=== PATIENT | male | born 1950 | race Caucasian/White ===

== ENCOUNTER 2016-12-16 11:30 | Inpatient (IN) | payer MEDICARE ==
--- NOTE | ~2016-12-16 | HP ---
History And Physical [place] [address] [facility] [place]. [address] NAME: CHUCK ANNE : 46 STATUS : ADM IN [facility]#: [id number] AGE: 66 ADM/REG DATE : 12/16/16 MR#: [id number] REPORT SERV DATE: 12/16/16 DICTATED BY: BRAYDEN POLANCO DATE: 12/16/16 REPORT STATUS : Draft TRANSCRIBED BY: MODL DATE: 12/16/16 DATE OF ADMISSION: 12/16/2016 CHIEF COMPLAINT: Neutropenic fever, BRIEF HISTORY OF PRESENT ILLNESS: The patient is a 66-year-old white male, treated by Dr. Serjio Asencio with carboplatin and etoposide, last chemo treatment about a week to 10 days ago, came into Dr. Asencio's office with a fever of 101.5 and was noted to have a neutropenia with a white count of 0.8, so he has been referred to the Hospitalist Service. This patient reports that he has been having difficult time because he is under radiation therapy by Dr. Florez, and he has had difficulty swallowing. He feels that food hurts him whenever he gets that he has not been able to eat really good. He has tried Carafate, and he has been on Magic Mouthwash and that seems to have not helped. He was on nystatin because he had oral thrush in the past. He also reported that recently he was started on morphine and that seemed to have helped some. He has not had any nausea, but last night, after eating he did vomit, again he attributed that to the use of morphine. He noted a fever today. He has had significant chest pain mainly related to his XRT. He has not had any diaphoresis. He has not had any night sweats. His appetite has been poor. He has noticed also some diarrhea, but no blood in the stool. He has not had any dysuria, frequency, urgency, or any other problems. He has not noticed any skin redness, swelling, or any sores in his genital areas, perianal areas, sacral areas, or any feet. He offers no other problems or complaints. REVIEW OF SYSTEMS: A 12-point review of systems otherwise is negative. PAST MEDICAL HISTORY: Significant for severe tobacco abuse; COPD that is oxygen dependent; noninvasive bladder cancer, status post cystoscopic resections two times about three years ago. He has hypertension. He has had a history of TIA treated at [facility]. PAST SURGICAL HISTORY: TURBT. ALLERGIES: CODEINE. HOME MEDICATIONS: Dexamethasone, sodium phosphate solution, Neulasta delivery kit, albuterol, Lipitor, Breo Ellipta, Symbicort, triamterene and hydrochlorothiazide, and Zantac. SOCIAL HISTORY: He quit smoking about three years ago. He was a smoker of two packs per day for 50+ years. Occasionally drinks a beer. No use of illicit substances. Lives at home. Fully functional in all ADLs. FAMILY HISTORY: Father with cancer of unknown type. Brother with cancer of the skin. One sister with throat cancer. Another sister with bone cancer. One sister has heart disease. Mother with diabetes. PHYSICAL EXAMINATION: History And Physical [address] [address] NAME: CHUCK ANNE : 46 STATUS : ADM IN [facility]#: [id number] AGE: 66 ADM/REG DATE : 12/16/16 MR#: [id number] REPORT SERV DATE: 12/16/16 DICTATED BY: BRAYDEN POLANCO DATE: 12/16/16 REPORT STATUS : Draft TRANSCRIBED BY: DIETER DATE: 12/16/16 GENERAL: White male, lying on the bed, appears to be in no obvious respiratory distress. He is awake and alert. He is oriented. VITAL SIGNS: Blood pressure is 88/56, temperature is 97.8, pulse of 107, and saturation of 98% on 2 L of nasal cannula. HEENT: Head is normocephalic, atraumatic. Pupils are equal, round, and reactive to light. Extraocular muscles are intact. Sclerae anicteric. Conjunctivae are normal. Somewhat sunken orbital spaces are noted. Oropharynx : Dry mucous membranes. Tongue protrusion midline. Uvula midline. NECK: Supple. No jugular venous distention. No carotid bruits or thyromegaly is appreciated. No lymphadenopathy in the neck is palpable. HEART: Regular rate rhythm. There is a 2/6 soft systolic murmur best heard in the second intercostal space along the left parasternal border. PMI is nondisplaced. LUNGS: Clear to auscultation both anteriorly and posteriorly without rales, rhonchi, wheezing, or consolidation. ABDOMEN: Scaphoid, soft, nontender, good bowel sounds. No rebound or guarding. No organomegaly. EXTREMITIES: Without cyanosis, clubbing, or edema. NEUROLOGICAL: Completely normal. LABORATORY DATA: The only labs available is from Dr. Asencio's office today with a CBC; his white count is 0.8, bands are 8%, neutrophils 56%, hemoglobin is 8.6, hematocrit of 25, platelet count is 73,000. His chemistry performed on 12/07/2016 shows a glucose of 119, creatinine of 0.9, sodium of 133, chloride of 94. alkaline phosphatase was 104, ALT was 30, albumin was 4.2, calcium was 8.9. IMPRESSION: 1. Neutropenic fever. 2. Radiation-induced esophagitis. 3. Limited stage T1 N2 M0 small cell lung cancer. 4. Hypertension. 5. O2 dependent chronic obstructive pulmonary disease. 6. Noninvasive bladder cancer in the previous with resection. 7. History of transient ischemic attack. PLAN: The patient will be admitted. Aggressive IV fluids will be given. IV antibiotics will be given. We will obtain marsh culture including urine and blood. We will obtain an echocardiogram as well. Home medications when available. Carafate will be given. Magic Mouthwash will be given. Viscous lidocaine will be used. Hematology/Oncology consultation will be obtained. The patient remains a full code. SV/DIETER Brayden Ploanco M.D. History And Physical [address] [address] NAME: CHUCK ANNE : 46 STATUS : ADM IN PAT#: [id number] AGE: 66 ADM/REG DATE : 12/16/16 MR#: [id number] REPORT SERV DATE: 12/16/16 DICTATED BY: BRAYDEN POLANCO DATE: 12/16/16 REPORT STATUS : Draft TRANSCRIBED BY: MODL DATE: 12/16/16 / [id number] CC: Fay De La Cruz DANA M Gregory R. Sutton, MD
--- NOTE | ~2016-12-16 | DS ---
Discharge Summary [place] [place]. [address] NAME: CHUCK ANNE : 46 STATUS : DIS IN PAT#: [id number] AGE: 66 ADM/REG DATE : 12/16/16 MR#: [id number] REPORT SERV DATE: 12/22/16 DICTATED BY: JORI NEWBERRY DATE: 12/21/16 REPORT STATUS : Draft TRANSCRIBED BY: MODL DATE: 12/21/16 ADMISSION DATE: 12/16/2016 DISCHARGE DATE: 12/21/2016 DISCHARGE DIAGNOSES: 1. Neutropenia fever, resolved. 2. Radiation-induced esophagitis. 3. Limited small-cell lung cancer. 4. Noninvasive bladder cancer. 5. Oxygen-dependent chronic obstructive pulmonary disease. 6. Pancytopenia, chemo induced. 7. Hypokalemia, resolved. 8. Hypomagnesium, resolved. IMAGIN. Chest x-ray, 12/16/2016. Impression: Bilateral pleural thickening, scarring in the lungs. Left upper lobe is worse than the right. This is unchanged from 11/09/2016. 2. Barium swallow, 12/18/2016. Impression: No esophageal perforation demonstrated. Echocardiogram, overall quality of study is limited. The patient is noted to be in tachycardic. Valvular structures were not well seen, normal left ventricular size with normal left ventricular systolic function, EF of 50%. Mild left ventricular diastolic dysfunction. Normal right ventricular size and systolic function. Mildly calcified aortic valve without aortic stenosis. LABORATORY DATA: WBC is 0.9, hemoglobin 7.7, hematocrit 22.1, and platelet count is 60, absolute neutrophil is 0.52. HOSPITAL STAY: Please refer to history and physical dictated by Dr. Brayden Polanco on 12/16/2016 for complete admission details. This patient is a 66-year-old male, who is currently being treated for limited small cell lung cancer under the care of Dr. Asencio. He last underwent chemotherapy 10 days prior to this admission. He did present with a fever of 101.5 and WBC of 0.8. The patient is currently undergoing radiation with Dr. Florez. He does state that he is having difficulty swallowing. 1. Neutropenic fever, resolved. The patient's WBC count is noted 0.8 upon admission. The patient was started on broad-spectrum antibiotics. Blood and urine cultures were obtained. The patient was monitored, and the patient remained afebrile. ANC count of 520. Blood cultures were negative x4 days. Antibiotics were discontinued. 2. Radiation-induced esophagitis. The patient does have complaints of difficulty swallowing. A barium swallow was ordered. The patient had no difficulty swallowing. Weight has remained stable. A nutrition consult was obtained. Per recommendation, the patient to continue soft diet. The patient does state that viscous lidocaine has given him relief, it was prescribed prior to each meals and p.r.n., prescription has been provided. 3. Limited small-cell lung cancer followed by Dr. Asencio and Dr. Florez. The patient will Discharge Summary [address] [place]. [address] NAME: CHUCK ANNE : 46 STATUS : DIS IN PAT#: [id number] AGE: 66 ADM/REG DATE : 12/16/16 MR#: [id number] REPORT SERV DATE: 12/22/16 DICTATED BY: JORI NEWBERRY DATE: 12/21/16 REPORT STATUS : Draft TRANSCRIBED BY: DIETER DATE: 12/21/16 continue to follow up as an outpatient. 4. Noninvasive bladder cancer. Again, followed by Oncology. 5. Oxygen-dependent chronic obstructive pulmonary disease. The patient has been monitored, has remained at baseline O2 needs during his hospital stay. 6. Pancytopenia, chemo induced, lab work has been monitored. The patient did receive 1 unit of platelets on 12/19/2016. 7. Hypokalemia and hypomagnesium, this was replaced per protocol. This patient is being discharged home in hemodynamically stable condition. We will follow up with his oncologist. Prescriptions for viscous lidocaine and morphine were provided. The patient will resume home health upon discharge. DISCHARGE MEDICATIONS: 1. Lipitor 40 mg 1 p.o. at bedtime. 2. Prilosec 20 mg 1 p.o. daily. 3. Carafate 1 g p.o. a.c. and at bedtime p.r.n. 4. Maxzide 50 mg 1 p.o. daily. 5. Morphine 20 mg/5 mL p.o. every 4 hours p.r.n. for pain. 6. Phenergan 25 mg 1 p.o. every 6 hours. 7. Zofran 8 mg 1 p.o. every eight hours p.r.n. for nausea. 8. Breo Ellipta 200/25 mcg inhaler 1 puff inhaled daily. 9. Magic mouthwash 5-10 mL p.o. 4 times daily. 10.Albuterol inhaler 1 neb inhaled daily. This discharge took greater than 30 minutes due to corroboration with the oncologist and showcase trimmer. KENDALL/DIETER Jori Newberry NP / [id number] CC: MD Janneth Cuevas
[2016-12-16 14:12] LABS: MEAN CORPUSCULAR VOLUME 91.4 fL (80-100); MEAN PLATELET VOLUME 8.2 fL (9.2-13.0); RBC DISTRIBUTION WIDTH 15.4 % (12.0-16.0); RED CELL COUNT 1.97 10/6/uL (4.7-6.1)
[2016-12-16 14:18] LABS: HEMOGLOBIN 6.3 g/dL (13.6-17.8); INTERNATIONAL NORMAL RATI 1.2 UNITS (-); PARTIAL THROMBO TIME 32.5 SEC (22.5-37.2); PLATELET COUNT 24 10/3/uL (150-400); PROTIME (NOT ORD) 15.1 SEC (12.0-14.5); WHITE BLOOD CELLS 0.2 10/3/uL (4.5-10.5)
[2016-12-16 14:22] LABS: MANUAL DIFF YES %
[2016-12-16 14:27] LABS: A/G RATIO 0.7 (0.7-1.9); ALBUMIN 2.6 G/DL (3.5-5.0); ALKALINE PHOSPHATASE 84 U/L (45-117); BUN (BLOOD UREA NITROGEN) 22 MG/DL (6-23); CALCIUM, SERUM 7.8 MG/DL (8.5-10.4); CHLORIDE, SERUM 93 MMOL/L (96-112); CO2 (CARBON DIOXIDE) 27 MMOL/L (24-34); CREATININE 0.75 MG/DL (0.70-1.30); GFR AFRICAN AMERICAN 109 ML/MIN (>=60); GFR NON AFRICAN AMERICAN 94 ML/MIN (>=60); GLOBULIN 3.6 G/DL (2.5-4.1); GLUCOSE, SERUM 104 MG/DL (60-99); PHOSPHORUS, SERUM 3.3 MG/DL (2.5-4.5); POTASSIUM, SERUM 3.6 MMOL/L (3.5-5.3); SGOT(AST) 11 U/L (5-40); SGPT(ALT) 15 U/L (5-65); SODIUM, SERUM 130 MMOL/L (135-148); TOTAL BILIRUBIN 0.7 MG/DL (0-1.2); TOTAL PROTEIN 6.2 G/DL (6.0-8.5)
[2016-12-16 14:33] LABS: BAND NEUTROPHILS 20 %; LYMPHOCYTES 70 %; LYMPHOCYTES ABSOLUTE (CALC) 0.14 10/3/uL (0.67-4.30); NEUTROPHILS ABSOLUTE (CALC) 0.06 10/3/uL (2.02-8.40); RBC MORPHOLOGY NORM (NORMAL); SEGMENTED NEUTROPHIL (0) 10 %; TOTAL NUCLEATED CELLS 10
[2016-12-16 15:06] LABS: PROCALCITONIN 0.65 ng/mL (<0.5)
[2016-12-16] MEDS ORDERED: MAXZIDE PO (15:21)
[2016-12-16] MEDS ORDERED: MORPHINE S20 MG/5 ML PO (15:22)
[2016-12-16] MEDS ORDERED: PRILO PO (15:22)
[2016-12-16] MEDS ORDERED: SUCR PO (15:22)
[2016-12-16] MEDS ORDERED: ZOFRAN8 PO (15:23)
[2016-12-16] MEDS ORDERED: PR25 PO (15:23)
[2016-12-16] MEDS ORDERED: BREO ELLIPTA 21 EACH INH (15:23)
[2016-12-16] MEDS ORDERED: MAGIC MOUTHWASH PO (15:24)
[2016-12-16] MEDS ORDERED: CHEMOTHERAPY IV (15:25)
[2016-12-16] MEDS ORDERED: FLUCON1 PO (15:25)
[2016-12-16] MEDS ORDERED: DUONEB INH ×2 (15:26)
[2016-12-16] MEDS ORDERED: LIPITOR40 PO (15:27)
[2016-12-17 08:13] LABS: MEAN CORPUS HGB CONC 35.8 g/dL (32.0-36.0); MEAN CORPUSCULAR HEMOGLOB 31.4 pg (26.0-34.0); MEAN PLATELET VOLUME 9.5 fL (9.2-13.0); RBC DISTRIBUTION WIDTH 15.2 % (12.0-16.0)
[2016-12-17 08:14] LABS: ALBUMIN 2.4 G/DL (3.5-5.0); BUN (BLOOD UREA NITROGEN) 14 MG/DL (6-23); CALCIUM, SERUM 8.2 MG/DL (8.5-10.4); CHLORIDE, SERUM 96 MMOL/L (96-112); CO2 (CARBON DIOXIDE) 27 MMOL/L (24-34); CREATININE 0.68 MG/DL (0.70-1.30); GFR AFRICAN AMERICAN 114 ML/MIN (>=60); GFR NON AFRICAN AMERICAN 98 ML/MIN (>=60); GLUCOSE, SERUM 102 MG/DL (60-99); PHOSPHORUS, SERUM 2.3 MG/DL (2.5-4.5); POTASSIUM, SERUM 3.3 MMOL/L (3.5-5.3); SODIUM, SERUM 132 MMOL/L (135-148)
[2016-12-17 08:16] LABS: HEMATOCRIT 24.6 % (40.0-51.0); HEMOGLOBIN 8.8 g/dL (13.6-17.8); MANUAL DIFF YES %; MEAN CORPUSCULAR VOLUME 87.9 fL (80-100); PLATELET COUNT 13 10/3/uL (150-400); WHITE BLOOD CELLS 0.2 10/3/uL (4.5-10.5)
[2016-12-17 09:57] LABS: LYMPHOCYTES 60 %; LYMPHOCYTES ABSOLUTE (CALC) 0.12 10/3/uL (0.67-4.30); MONOCYTES 20 %; MONOCYTES ABSOLUTE (CALC) 0.04 10/3/uL (0.21-1.20); NEUTROPHILS ABSOLUTE (CALC) 0.04 10/3/uL (2.02-8.40); SEGMENTED NEUTROPHIL (0) 20 %; TOTAL NUCLEATED CELLS 20
[2016-12-17 09:58] LABS: POLYCHROMASIA 1+ (2-5/OIF) (0-1/OIF); TEARDROP SHAPED RBCS OCC (0-2/OIF)
[2016-12-17 09:59] LABS: ASCORBIC ACID (UR NOT ORDER) NEG (NEG); BILIRUBIN, URINE NEGATIVE (NEG); KETONE, URINE NEGATIVE (NEG); LEUKOCYTE ESTERASE(NOT OR NEG (NEG); WBC (NOT ORDERED) (RFLEX) 2 (0-5)
[2016-12-18 06:20] LABS: HEMATOCRIT 23.6 % (40.0-51.0); HEMOGLOBIN 8.2 g/dL (13.6-17.8); MANUAL DIFF YES %; MEAN CORPUS HGB CONC 34.7 g/dL (32.0-36.0); MEAN CORPUSCULAR HEMOGLOB 30.5 pg (26.0-34.0); MEAN CORPUSCULAR VOLUME 87.7 fL (80-100); PLATELET COUNT 10 10/3/uL (150-400); RBC DISTRIBUTION WIDTH 15.5 % (12.0-16.0); RED CELL COUNT 2.69 10/6/uL (4.7-6.1); WHITE BLOOD CELLS 0.3 10/3/uL (4.5-10.5)
[2016-12-18 06:28] LABS: BUN (BLOOD UREA NITROGEN) 8 MG/DL (6-23); CALCIUM, SERUM 8.3 MG/DL (8.5-10.4); CHLORIDE, SERUM 96 MMOL/L (96-112); CO2 (CARBON DIOXIDE) 28 MMOL/L (24-34); CREATININE 0.61 MG/DL (0.70-1.30); GFR AFRICAN AMERICAN 119 ML/MIN (>=60); GFR NON AFRICAN AMERICAN 103 ML/MIN (>=60); GLUCOSE, SERUM 88 MG/DL (60-99); POTASSIUM, SERUM 3.3 MMOL/L (3.5-5.3); SODIUM, SERUM 134 MMOL/L (135-148)
[2016-12-18 06:44] LABS: BAND NEUTROPHILS 8 %; EOSINOPHILS 1 %; LYMPHOCYTES 61 %; LYMPHOCYTES ABSOLUTE (CALC) 0.18 10/3/uL (0.67-4.30); MONOCYTES 13 %; MONOCYTES ABSOLUTE (CALC) 0.04 10/3/uL (0.21-1.20); NEUTROPHILS ABSOLUTE (CALC) 0.08 10/3/uL (2.02-8.40); SEGMENTED NEUTROPHIL (0) 17 %; TOTAL NUCLEATED CELLS 100
[2016-12-18 06:45] LABS: HELMET CELLS OCC (0-2/OIF); POLYCHROMASIA 1+ (2-5/OIF) (0-1/OIF); TEARDROP SHAPED RBCS OCC (0-2/OIF)
[2016-12-18 06:46] LABS: MICROCYTES 1+ (5-10/OIF) (0-5/OIF)
[2016-12-19 05:04] LABS: HEMATOCRIT 21.9 % (40.0-51.0); HEMOGLOBIN 7.8 g/dL (13.6-17.8); MEAN CORPUS HGB CONC 35.6 g/dL (32.0-36.0); MEAN CORPUSCULAR HEMOGLOB 31.3 pg (26.0-34.0); MEAN PLATELET VOLUME 8.4 fL (9.2-13.0); RBC DISTRIBUTION WIDTH 15.4 % (12.0-16.0); RED CELL COUNT 2.49 10/6/uL (4.7-6.1)
[2016-12-19 05:05] LABS: MANUAL DIFF YES %; PLATELET COUNT 5 10/3/uL (150-400); WHITE BLOOD CELLS 0.4 10/3/uL (4.5-10.5)
[2016-12-19 05:19] LABS: ALBUMIN 2.2 G/DL (3.5-5.0); BUN (BLOOD UREA NITROGEN) 6 MG/DL (6-23); CALCIUM, SERUM 7.8 MG/DL (8.5-10.4); CHLORIDE, SERUM 95 MMOL/L (96-112); CO2 (CARBON DIOXIDE) 33 MMOL/L (24-34); CREATININE 0.54 MG/DL (0.70-1.30); GFR AFRICAN AMERICAN 125 ML/MIN (>=60); GFR NON AFRICAN AMERICAN 108 ML/MIN (>=60); GLUCOSE, SERUM 108 MG/DL (60-99); PHOSPHORUS, SERUM 2.9 MG/DL (2.5-4.5); POTASSIUM, SERUM 3.1 MMOL/L (3.5-5.3); SODIUM, SERUM 136 MMOL/L (135-148)
[2016-12-19 06:11] LABS: BAND NEUTROPHILS 33 %; EOSINOPHILS 3 %; EOSINOPHILS ABSOLUTE (CALC) 0.01 10/3/uL (0.0-0.53); LYMPHOCYTES 33 %; LYMPHOCYTES ABSOLUTE (CALC) 0.13 10/3/uL (0.67-4.30); MONOCYTES 7 %; MONOCYTES ABSOLUTE (CALC) 0.03 10/3/uL (0.21-1.20); NEUTROPHILS ABSOLUTE (CALC) 0.23 10/3/uL (2.02-8.40); SEGMENTED NEUTROPHIL (0) 24 %; TOTAL NUCLEATED CELLS 100
[2016-12-19 06:12] LABS: SPHEROCYTES OCC (0-2/OIF)
[2016-12-20 04:12] LABS: HEMATOCRIT 21.7 % (40.0-51.0); HEMOGLOBIN 7.4 g/dL (13.6-17.8); MEAN CORPUS HGB CONC 34.1 g/dL (32.0-36.0); MEAN CORPUSCULAR HEMOGLOB 30.6 pg (26.0-34.0); MEAN CORPUSCULAR VOLUME 89.7 fL (80-100); MEAN PLATELET VOLUME 8.8 fL (9.2-13.0); RED CELL COUNT 2.42 10/6/uL (4.7-6.1)
[2016-12-20 04:13] LABS: ALBUMIN 2.4 G/DL (3.5-5.0); BUN (BLOOD UREA NITROGEN) 5 MG/DL (6-23); CALCIUM, SERUM 8.4 MG/DL (8.5-10.4); CHLORIDE, SERUM 94 MMOL/L (96-112); CO2 (CARBON DIOXIDE) 33 MMOL/L (24-34); CREATININE 0.53 MG/DL (0.70-1.30); GFR AFRICAN AMERICAN 126 ML/MIN (>=60); GFR NON AFRICAN AMERICAN 109 ML/MIN (>=60); PHOSPHORUS, SERUM 2.7 MG/DL (2.5-4.5); SODIUM, SERUM 137 MMOL/L (135-148)
[2016-12-20 04:14] LABS: MANUAL DIFF YES %; PLATELET COUNT 71 10/3/uL (150-400); WHITE BLOOD CELLS 0.6 10/3/uL (4.5-10.5)
[2016-12-20 04:18] LABS: GLUCOSE, SERUM 86 MG/DL (60-99); POTASSIUM, SERUM 2.9 MMOL/L (3.5-5.3)
[2016-12-20 04:38] LABS: BAND NEUTROPHILS 32 %; EOSINOPHILS 2 %; EOSINOPHILS ABSOLUTE (CALC) 0.01 10/3/uL (0.0-0.53); HYPOCHROMIA 1+ (3-10/OIF) (0-2/OIF); LYMPHOCYTES 26 %; LYMPHOCYTES ABSOLUTE (CALC) 0.16 10/3/uL (0.67-4.30); MICROCYTES 1+ (5-10/OIF) (0-5/OIF); MONOCYTES 6 %; MONOCYTES ABSOLUTE (CALC) 0.04 10/3/uL (0.21-1.20); PLATELET ESTIMATE DEC (ADEQUATE); SEGMENTED NEUTROPHIL (0) 34 %; TOTAL NUCLEATED CELLS 50
[2016-12-21 04:22] LABS: HEMATOCRIT 22.1 % (40.0-51.0); HEMOGLOBIN 7.7 g/dL (13.6-17.8); MEAN CORPUS HGB CONC 34.8 g/dL (32.0-36.0); MEAN CORPUSCULAR HEMOGLOB 31.7 pg (26.0-34.0); MEAN CORPUSCULAR VOLUME 90.9 fL (80-100); PLATELET COUNT 60 10/3/uL (150-400); RBC DISTRIBUTION WIDTH 14.8 % (12.0-16.0); RED CELL COUNT 2.43 10/6/uL (4.7-6.1)
[2016-12-21 04:25] LABS: MANUAL DIFF YES %; WHITE BLOOD CELLS 0.9 10/3/uL (4.5-10.5)
[2016-12-21 04:34] LABS: BUN (BLOOD UREA NITROGEN) 6 MG/DL (6-23); CALCIUM, SERUM 8.2 MG/DL (8.5-10.4); CHLORIDE, SERUM 97 MMOL/L (96-112); CO2 (CARBON DIOXIDE) 34 MMOL/L (24-34); CREATININE 0.58 MG/DL (0.70-1.30); GFR AFRICAN AMERICAN 121 ML/MIN (>=60); GFR NON AFRICAN AMERICAN 105 ML/MIN (>=60); POTASSIUM, SERUM 3.4 MMOL/L (3.5-5.3); SODIUM, SERUM 138 MMOL/L (135-148)
[2016-12-21 04:38] LABS: GLUCOSE, SERUM 130 MG/DL (60-99)
[2016-12-21 05:02] LABS: BAND NEUTROPHILS 22 %; BASOPHILS 2 %; BASOPHILS ABSOLUTE (CALC) 0.02 10/3/uL (0.0-0.16); LYMPHOCYTES 30 %; LYMPHOCYTES ABSOLUTE (CALC) 0.27 10/3/uL (0.67-4.30); MONOCYTES 10 %; MONOCYTES ABSOLUTE (CALC) 0.09 10/3/uL (0.21-1.20); NEUTROPHILS ABSOLUTE (CALC) 0.52 10/3/uL (2.02-8.40); PLATELET ESTIMATE DEC (ADEQUATE); SEGMENTED NEUTROPHIL (0) 36 %; TOTAL NUCLEATED CELLS 100
[2016-12-21] MEDS ORDERED: MORPHINE S20 MG/5 ML (15:16)
== END 2016-12-21 18:30 | disposition home health service (06) | DRG 809 ==
LOC: 4EA 11:30
PROVIDERS: Internal Medicine; Nurse Practitioner Family
PROC: 30233R0 Transfusion of Autologous Platelets into Peripheral Vein, Percutaneous Approach (ICD-10-PCS; principal; 2016-12-16)
PROC: 30233N0 Transfusion of Autologous Red Blood Cells into Peripheral Vein, Percutaneous Approach (ICD-10-PCS; 2016-12-16)
DX: D70.9 Neutropenia, unspecified (principal); C34.90 Malignant neoplasm of unspecified part of unspecified bronchus or lung; N17.9 Acute kidney failure, unspecified; T66.XXXA Radiation sickness, unspecified, initial encounter; C67.9 Malignant neoplasm of bladder, unspecified; J44.9 Chronic obstructive pulmonary disease, unspecified; E83.42 Hypomagnesemia; K20.8 Other esophagitis; I10 Essential (primary) hypertension; E87.6 Hypokalemia; D61.810 Antineoplastic chemotherapy induced pancytopenia
CPT/HCPCS: 36415; 71020; 74220; 77336; 77386; 80048; 80053; 80069; 80202; 81001; 83605; 83735; 84100; 84145; 85025; 85610; 85730; 86850; 86900; 86901; 86920; 87040; 87449; 94640; A9270-GY; C8929; J0692; J1170; J2405; J3370; P9016; P9035; Q9957

== ENCOUNTER 2017-01-18 21:49 | Inpatient (IN) | payer MEDICARE ==
--- NOTE | ~2017-01-18 | CN ---
Consultation Report [facility] [address] [place]. [address] NAME: CHUCK GRIMES : 46 STATUS : ADM IN [facility]#: [id number] AGE: 66 ADM/REG DATE : 01/18/17 MR#: [id number] REPORT SERV DATE: 01/19/17 DICTATED BY: JESUS ABDULLAHI DATE: 01/19/17 REPORT STATUS : Draft TRANSCRIBED BY: MODL DATE: 01/19/17 CONSULTATION DATE OF CONSULTATION: REASON FOR REFERRAL: Lung cancer. HISTORY OF PRESENT ILLNESS: Mr. Grimes is a 66-year-old gentleman with a history of small cell lung cancer, recently status post [place] etoposide and concurrent radiation therapy. He is believed to be in remission at this time. He has had COPD diagnosed in 2009, which had been fairly well controlled but is worsened with this acute illness and hypertension which has been well controlled. He is admitted now with acute onset of worsening dyspnea with associated fever and chills. He had a CTA of the chest, I personally reviewed, which shows bilateral patchy infiltrates consistent with pneumonia. SOCIAL HISTORY: He is . He occasionally drinks alcohol. He quit tobacco use six years ago. FAMILY HISTORY: Negative for lung disease. REVIEW OF SYSTEMS: A complete review of systems was negative except for positive for fever, chills, dyspnea, and cough. PHYSICAL EXAMINATION: GENERAL: Reveals a thin gentleman in no acute distress. VITAL SIGNS: 98.9, 112/70, pulse 110, respirations 18. HEENT: Eyes: The conjunctivae and sclerae are clear. There is no icterus. Pupils are equal and reactive to light. There is a left lid lag. Ear, nose, mouth, and throat are normal to inspection. The lips and gums show no abnormalities. Oropharynx without thrush or stomatitis. NECK: Supple. There is no thyromegaly. The trachea is midline. Neck is symmetric. Skin without rash or nodules on inspection and palpation. CARDIOVASCULAR: Shows regular rate and rhythm without murmurs. There is no peripheral edema. RESPIRATIONS: Lungs are clear to auscultation without rhonchi or wheezing. There is a bilateral rhonchi with mild wheezing. The respiratory effort is minimally labored. GASTROINTESTINAL: The abdomen is soft. There is no hepatosplenomegaly or mass. PSYCHIATRIC: Shows normal insight and judgment. DATA REVIEW: The CTA is as I described. CBC shows a WBC of 15.3, hemoglobin 10.0, platelets 253,000. Lactate is 0.8. CMP showed a creatinine of 1.02 and normal liver tests. ASSESSMENT: Consultation Report [place] [address] [place]. [address] NAME: CHUCK GRIMES : 46 STATUS : ADM IN PAT#: [id number] AGE: 66 ADM/REG DATE : 01/18/17 MR#: [id number] REPORT SERV DATE: 01/19/17 DICTATED BY: JESUS ABDULLAHI DATE: 01/19/17 REPORT STATUS : Draft TRANSCRIBED BY: MODL DATE: 01/19/17 1. Lung cancer, status post chemoradiation. 2. Pneumonia with sepsis. Treatment with antibiotics. 3. Chronic obstructive pulmonary disease exacerbation. Therapy has started. 4. Anemia, multifactorial. We will follow. We will follow along with you. Thank you very much for this consultation. EMMANUEL/DIETER Jesus Abdullahi M.D. / [id number] CC: Fay Barbour Dana M Gregory R. Sutton, MD
--- NOTE | ~2017-01-18 | DS ---
Discharge Summary [facility] [address] [place]. [address] NAME: CHUCK ANNE : 46 STATUS : DIS IN PAT#: [id number] AGE: 66 ADM/REG DATE : 01/18/17 MR#: [id number] REPORT SERV DATE: 01/25/17 DICTATED BY: CHERELLE JAMES DATE: 01/22/17 REPORT STATUS : Draft TRANSCRIBED BY: MODL DATE: 01/22/17 ADMISSION DATE: 01/18/2017 DISCHARGE DATE: 01/22/2017 DISCHARGE DIAGNOSES: 1. Acute chronic hypoxic respiratory failure. The patient already has home O2. His saturation is 99% down to 95% with 3 L of oxygen. 2. COPD exacerbation. 3. Bilateral hilar pneumonia on the CT scan. The patient was treated with empiric antibiotics, spreading culture is growing with a normal keegan. 4. Pneumonia. CT of the finding was consistent with pneumonia. The patient's sputum was not growing any pathogen. However, clinically the patient had a pneumonia, we will continue to treat with a Bactrim for five more days. 5. Anemia multifactorial. The patient has finished the chemotherapy and also has nutritional status being low. The patient was transfused two units of total blood during this hospitalization. 6. Malnutrition, severe. 7. Lung cancer. Finished a radiation and chemo. 8. Recent diagnosis of radiation esophagitis, stable. HISTORY OF PRESENT ILLNESS: This is a 66-year-old male patient, who finished cancer treatment with radiation and chemo, recently came to the hospital with short of breath and fever and chills. Please see dictated H and P. HOSPITAL COURSE: He was admitted to hospital with pneumonia with hypoxia. He was on empiric antibiotics and had a volume resuscitation as well. He did have a treatment for COPD exacerbation along with other treatment. He did well, he improved. He also had a transfusion for multifactorial anemia and improved. All with this as a supportive treatment he did better. His steroid went down to the oral steroid and his sputum was growing initially some gram-positive cocci and however it returned into normal keegan. He was treated with the Levaquin and vancomycin for empiric treatment for sepsis with pneumonia and improved. Since we are not having any pathogen we are going to continue the Bactrim and azithromycin for five more days at home. He has been afebrile and stable. The other thing as he has been in sinus tachycardia through the whole time on this hospitalization regardless this is volume status. We are going to put him on the small dose of Coreg. He did well, he did tolerate all the treatment, repeated a chest x-ray was showing improvement of aeration and airspace disease. Therefore, the patient maximized inpatient benefit, will be discharged to home in stable condition. The patient already has an appointment with Dr. Asencio in two days. DISCHARGE MEDICATIONS: Bactrim DS 1 tablet every 12 hours for five days, azithromycin 500 mg a day for three days, Florastor 1 capsule twice a day, and continuing his nebulizer inhaler at home, continue Lipitor 40 mg once a day, Prilosec 20 mg once a day, prednisone will be prescribed for tapering from 30 down to 10, continue the Breo once a day, potassium 20 mg twice a day, lidocaine Viscous, MiraLAX, and Maalox liquid. Discharge Summary [address] [address] NAME: CHUCK ANNE : 48 STATUS : DIS IN PAT#: [id number] AGE: 66 ADM/REG DATE : 01/18/17 MR#: [id number] REPORT SERV DATE: 01/25/17 DICTATED BY: CHERELLE JAMES DATE: 01/22/17 REPORT STATUS : Draft TRANSCRIBED BY: DIETER DATE: 01/22/17 TIME SPENT: More than 30 minutes on discharge education and coordination. DISPOSITION: The patient is discharged home in stable condition. The patient has a followup later with Dr. Asencio in two days. EKL/MODL Cherelle James M.D. / [id number] CC: Fay Barbour DANA M Gregory R. Sutton, MD
--- NOTE | ~2017-01-18 | HP ---
History And Physical [address] [place]. [address] NAME: CHUCK ANNE : 46 STATUS : ADM IN [facility]#: [id number] AGE: 66 ADM/REG DATE : 01/18/17 MR#: [id number] REPORT SERV DATE: 01/19/17 DICTATED BY: ALEXEY AMBROSE DATE: 01/19/17 REPORT STATUS : Draft TRANSCRIBED BY: MODL DATE: 01/19/17 DATE OF ADMISSION: 01/18/2017 CHIEF COMPLAINT: A 66-year-old male presenting with increasing shortness of breath, chest pain, fevers, and chills. HISTORY OF PRESENTING ILLNESS: The patient's history was obtained through careful interview with the patient, coupled with review of [facility] and [facility] medical records. The patient states that just for about two days, he has been feeling "pretty rough." He recalls that he had this last chemotherapy and radiation about three weeks ago for small cell lung cancer and he at first seemed to tolerated well, but over these last few days, has had dyspnea on exertion and cough, productive of white phlegm. He describes subjective fevers and chills with rigors. Then today, he developed chest discomfort "all the way across" his chest, radiating up into his shoulders, pleuritic-like sharp discomfort, exacerbated by coughing, 8/10 severity. He has also had a headache for these last two days. He describes nausea, but no vomiting. Since the diagnosis of his lung cancer, he has lost about 15 pounds. Other complaints include hemorrhoids, constipation. REVIEW OF SYSTEMS: Otherwise, a 14-point review of systems was obtained and was negative. PAST MEDICAL HISTORY: 1. Small cell lung cancer, just diagnosed in 2017 with chemotherapy and radiation under the care of Dr. Asencio. 2. Radiation-induced esophagitis. 3. COPD, on chronic 2 L nasal cannula oxygen. 4. Transient ischemic attack. 5. Bladder cancer, seen previously by Dr. Vimal Mcdonald. 6. No cardiac disease. PAST SURGICAL HISTORY: TURBTs. ALLERGIES: CODEINE. SOCIAL HISTORY: Used to be a heavy smoker up to two packs per day since he was 12 years of age, but quit in 2013. No alcohol abuse. 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 He lives with his [id number]. He became a just in December 2015. He has one daughter, who lives locally. He lives in [facility] [address] [address] NAME: CHUCK ANNE : 46 STATUS : ADM IN [facility]#: [id number] AGE: 66 ADM/REG DATE : 01/18/17 MR#: [id number] REPORT SERV DATE: 01/19/17 DICTATED BY: ALEXEY AMBROSE DATE: 01/19/17 REPORT STATUS : Draft TRANSCRIBED BY: DIETER DATE: 01/19/17 [place], [place]. FAMILY HISTORY: Diabetes and heart disease. Sister with bone cancer. Father with cancer. Sister with throat cancer. CURRENT MEDICATIONS: Include DuoNeb nebulizers, Maalox, Lipitor 40 mg p.o. daily, Breo Ellipta inhaled daily, morphine every four hours as needed, Prilosec 20 mg p.o. daily, Zofran p.r.n., potassium 20 mEq p.o. b.i.d., Phenergan p.r.n., sucralfate 1 g before meals and at bedtime, triamterene/hydrochlorothiazide 75/50 p.o. daily, Lidocaine Viscous as needed. PHYSICAL EXAMINATION: VITAL SIGNS: Temperature 98.6, pulse 142, blood pressure 91/54, respiratory rate 26, and O2 saturation 88% on 2 L nasal cannula. GENERAL: A chronically ill-appearing male, but in no evidence of acute distress. HEENT: Pupils equal, round, and reactive to light. No conjunctival pallor. No scleral icterus. Nares are patent. Oropharynx is clear of obstruction. Dry mucous membranes. NECK: Trachea midline. No thyromegaly. LYMPH: No cervical lymphadenopathy. No supraclavicular lymphadenopathy. RESPIRATORY: The patient has extensive expiratory wheeze and prolonged expiratory phase. Harsh upper respiratory rhonchi. No rales though. No focal egophony can be appreciated. The patient has a labored respiratory effort. CARDIOVASCULAR: Tachycardic. Regular rhythm. No murmurs, rubs, or gallops. No extremity edema is appreciated. ABDOMEN: Soft, nontender, nondistended. Normal bowel sounds auscultated throughout. No hepatosplenomegaly. DERMATOLOGIC: Warm and dry extremities. No pallor. No cyanosis. PSYCHIATRIC: Normal affect. Good mood. Alert and oriented x3. LABORATORY DATA: White blood cell count 15.3 with 23% bands, hemoglobin 10, hematocrit 29, platelets 263. Sodium 132, potassium 3.4, chloride 93, bicarbonate 23, BUN 21, creatinine 1.0, glucose 93. Troponin negative. Lactic acid 0.8. Liver enzymes within normal limits. STUDIES: 1. Chest x-ray by my own evaluation shows chronic scar, stable compared to 12/16/2016 chest x-ray, significant COPD changes. 2. EKG by my own evaluation shows sinus tachycardia, right bundle-branch block, right atrial abnormality. ASSESSMENT AND PLAN: 1. Sepsis with white blood cell count of 15.3, 23% bands, tachycardia, tachypnea, and shock, although mean arterial pressure has been stable above 65 and there is normal lactic acid. Check blood cultures. Treat with IV antibiotics. 2. Hypoxic respiratory failure. Provide supportive care. 3. Small cell lung cancer by report, followed by Dr. Asencio with chemotherapy and radiation. 4. Chronic obstructive pulmonary disease exacerbation. Place on IV Solu-Medrol, DuoNeb History And Physical [address] [address] NAME: CHUCK ANNE : 46 STATUS : ADM IN [facility]#: [id number] AGE: 66 ADM/REG DATE : 01/18/17 MR#: [id number] REPORT SERV DATE: 01/19/17 DICTATED BY: ALEXEY AMBROSE DATE: 01/19/17 REPORT STATUS : Draft TRANSCRIBED BY: DIETER DATE: 01/19/17 nebulizers. KPL/MODL Alexey Ambrose M.D. / [id number] CC: Fay Barbour DANA M Gregory R. Sutton, MD
[2017-01-18 20:10] LABS: BASOPHILS 0.1 %; BASOPHILS ABSOLUTE 0.01 10/3/uL (0.0-0.16); EOSINOPHILS 0.1 %; EOSINOPHILS ABSOLUTE 0.01 10/3/uL (0.0-0.53); IMMATURE GRANULOCYTES 0.3 %; IMMATURE GRANULOCYTES ABSOLUTE 0.04 10/3/uL (0.0-0.11); LYMPHOCYTES 4.6 %; MEAN CORPUSCULAR HEMOGLOB 31.3 pg (26.0-34.0); MEAN CORPUSCULAR VOLUME 92.2 fL (80-100); MEAN PLATELET VOLUME 8.4 fL (9.2-13.0); MONOCYTES 4.9 %; MONOCYTES ABSOLUTE 0.75 10/3/uL (0.21-1.20); NEUTROPHILS ABSOLUTE 13.83 10/3/uL (2.02-8.40)
[2017-01-18 20:12] LABS: ER CBC TAT 0 Hrs 11 Mins; HEMATOCRIT 29.4 % (40.0-51.0); MANUAL DIFF NO %; PLATELET COUNT 263 10/3/uL (150-400); RED CELL COUNT 3.19 10/6/uL (4.7-6.1); WHITE BLOOD CELLS 15.3 10/3/uL (4.5-10.5)
[2017-01-18 20:25] LABS: ALKALINE PHOSPHATASE 85 U/L (45-117); CALCIUM, SERUM 9.1 MG/DL (8.5-10.4); CHLORIDE, SERUM 93 MMOL/L (96-112); CREATININE 1.02 MG/DL (0.70-1.30); GFR AFRICAN AMERICAN 87 ML/MIN (>=60); GFR NON AFRICAN AMERICAN 75 ML/MIN (>=60); POTASSIUM, SERUM 3.4 MMOL/L (3.5-5.3); SGOT(AST) 19 U/L (5-40); SGPT(ALT) 19 U/L (5-65); SODIUM, SERUM 132 MMOL/L (135-148); TOTAL BILIRUBIN 0.7 MG/DL (0-1.2)
[2017-01-18 20:26] LABS: BUN (BLOOD UREA NITROGEN) 21 MG/DL (6-23); CO2 (CARBON DIOXIDE) 23 MMOL/L (24-34); GLUCOSE, SERUM 93 MG/DL (60-99); TOTAL PROTEIN 7.9 G/DL (6.0-8.5)
[2017-01-18 20:27] LABS: A/G RATIO 0.7 (0.7-1.9); ALBUMIN 3.2 G/DL (3.5-5.0); GLOBULIN 4.7 G/DL (2.5-4.1)
[2017-01-18 20:36] LABS: BAND NEUTROPHILS 23 %; ER DIFF TAT 0 Hrs 35 Mins; LYMPHOCYTES 1 %; LYMPHOCYTES ABSOLUTE (CALC) 0.15 10/3/uL (0.67-4.30); MONOCYTES 5 %; MONOCYTES ABSOLUTE (CALC) 0.77 10/3/uL (0.21-1.20); NEUTROPHILS ABSOLUTE (CALC) 14.38 10/3/uL (2.02-8.40); PLATELET ESTIMATE ADQ (ADEQUATE); SEGMENTED NEUTROPHIL (0) 71 %; TOTAL NUCLEATED CELLS 100
[2017-01-18 20:37] LABS: ANISOCYTOSIS 1+ (5-10/OIF) (0-5/OIF); TOXIC GRANULATION SLT
[2017-01-18 21:13] LABS: LACTATE 0.8 MMOL/L (0.3-2.4)
[~2017-01-18 21:49] MED LIST: BREO ELLIPTA 21 EACH INH; CHEMOTHERAPY IV; DUONEB INH; FLUCON1 PO; LIPITOR40 PO; MAGIC MOUTHWASH PO; MAXZIDE PO; MORPHINE S20 MG/5 ML; MORPHINE S20 MG/5 ML PO; PR25 PO; PRILO PO; SUCR PO; ZOFRAN8 PO
[2017-01-18] MEDS ORDERED: KLOR-CON M2020 MEQ PO (22:13)
[2017-01-18] MEDS ORDERED: MAALOX PO (22:14)
[2017-01-18] MEDS ORDERED: LIDOCAINE VISCOUS PO (22:14)
[2017-01-18 22:53] LABS: WBC (NOT ORDERED) (RFLEX) 0 (0-5)
[2017-01-18 22:58] LABS: ASCORBIC ACID (UR NOT ORDER) NEG (NEG); BILIRUBIN, URINE NEGATIVE (NEG); KETONE, URINE 20 MG/DL (NEG); LEUKOCYTE ESTERASE(NOT OR NEG (NEG); NITRITE (URINE) NEG (NEG)
[2017-01-19 08:27] LABS: INTERNATIONAL NORMAL RATI 1.5 UNITS (-)
[2017-01-19 08:28] LABS: PARTIAL THROMBO TIME 43.8 SEC (22.5-37.2); PROTIME (NOT ORD) 17.9 SEC (12.0-14.5)
[2017-01-19 08:36] LABS: ALBUMIN 3.1 G/DL (3.5-5.0); CHLORIDE, SERUM 102 MMOL/L (96-112); CO2 (CARBON DIOXIDE) 20 MMOL/L (24-34); GFR AFRICAN AMERICAN 120 ML/MIN (>=60); GFR NON AFRICAN AMERICAN 103 ML/MIN (>=60); SGOT(AST) 9 U/L (5-40); SGPT(ALT) 9 U/L (5-65); SODIUM, SERUM 137 MMOL/L (135-148); TOTAL BILIRUBIN 0.7 MG/DL (0-1.2); ULTRASENSITIVE TSH 0.715 MCIU/ML (0.358-3.740)
[2017-01-19 08:37] LABS: A/G RATIO 1.1 (0.7-1.9); ALKALINE PHOSPHATASE 48 U/L (45-117); BUN (BLOOD UREA NITROGEN) 12 MG/DL (6-23); CALCIUM, SERUM 8.1 MG/DL (8.5-10.4); GLOBULIN 2.8 G/DL (2.5-4.1); GLUCOSE, SERUM 74 MG/DL (60-99); POTASSIUM, SERUM 2.8 MMOL/L (3.5-5.3); TOTAL PROTEIN 5.9 G/DL (6.0-8.5); TROPONIN I 0.05 NG/ML (<0.05)
[2017-01-19 09:03] LABS: HEMATOCRIT 20.9 % (40.0-51.0); HEMOGLOBIN 7.2 g/dL (13.6-17.8); MEAN CORPUS HGB CONC 34.4 g/dL (32.0-36.0); MEAN CORPUSCULAR HEMOGLOB 32.1 pg (26.0-34.0); MEAN CORPUSCULAR VOLUME 93.3 fL (80-100); PLATELET COUNT 178 10/3/uL (150-400); RBC DISTRIBUTION WIDTH 17.4 % (12.0-16.0); RED CELL COUNT 2.24 10/6/uL (4.7-6.1); WHITE BLOOD CELLS 10.7 10/3/uL (4.5-10.5)
[2017-01-19 09:04] LABS: MANUAL DIFF YES %
[2017-01-19 09:38] LABS: BAND NEUTROPHILS 28 %; LYMPHOCYTES 1 %; LYMPHOCYTES ABSOLUTE (CALC) 0.11 10/3/uL (0.67-4.30); MONOCYTES 4 %; MONOCYTES ABSOLUTE (CALC) 0.43 10/3/uL (0.21-1.20); NEUTROPHILS ABSOLUTE (CALC) 10.17 10/3/uL (2.02-8.40); PLATELET ESTIMATE ADQ (ADEQUATE); SEGMENTED NEUTROPHIL (0) 67 %; TOTAL NUCLEATED CELLS 100
[2017-01-19 09:39] LABS: ANISOCYTOSIS 1+ (5-10/OIF) (0-5/OIF); MACROCYTES 1+ (5-10/OIF) (0-5/OIF); TOXIC GRANULATION 1+
[2017-01-19 09:52] LABS: PROCALCITONIN 5.04 ng/mL (<0.5)
[2017-01-20 06:07] LABS: BASOPHILS 0 %; EOSINOPHILS 0.1 %; EOSINOPHILS ABSOLUTE 0.01 10/3/uL (0.0-0.53); HEMOGLOBIN 8.1 g/dL (13.6-17.8); IMMATURE GRANULOCYTES 0.2 %; IMMATURE GRANULOCYTES ABSOLUTE 0.02 10/3/uL (0.0-0.11); LYMPHOCYTES 1.9 %; LYMPHOCYTES ABSOLUTE 0.22 10/3/uL (0.67-4.30); MEAN CORPUSCULAR HEMOGLOB 30.5 pg (26.0-34.0); MEAN PLATELET VOLUME 8.3 fL (9.2-13.0); MONOCYTES 5.9 %; MONOCYTES ABSOLUTE 0.67 10/3/uL (0.21-1.20); NEUTROPHILS 91.9 %; NEUTROPHILS ABSOLUTE 10.47 10/3/uL (2.02-8.40); PLATELET COUNT 182 10/3/uL (150-400); RED CELL COUNT 2.66 10/6/uL (4.7-6.1); WHITE BLOOD CELLS 11.4 10/3/uL (4.5-10.5)
[2017-01-20 06:20] LABS: HEMATOCRIT 23.8 % (40.0-51.0); MANUAL DIFF NO %; MEAN CORPUSCULAR VOLUME 89.5 fL (80-100); RBC DISTRIBUTION WIDTH 20.9 % (12.0-16.0)
[2017-01-20 06:28] LABS: BUN (BLOOD UREA NITROGEN) 10 MG/DL (6-23); CALCIUM, SERUM 8.6 MG/DL (8.5-10.4); CHLORIDE, SERUM 106 MMOL/L (96-112); CO2 (CARBON DIOXIDE) 23 MMOL/L (24-34); CREATININE 0.67 MG/DL (0.70-1.30); GFR AFRICAN AMERICAN 114 ML/MIN (>=60); GFR NON AFRICAN AMERICAN 99 ML/MIN (>=60); GLUCOSE, SERUM 124 MG/DL (60-99); POTASSIUM, SERUM 3.3 MMOL/L (3.5-5.3); SODIUM, SERUM 139 MMOL/L (135-148)
[2017-01-20 12:14] LABS: POTASSIUM, SERUM 3.4 MMOL/L (3.5-5.3)
[2017-01-21 07:41] LABS: BASOPHILS 0 %; EOSINOPHILS 0 %; IMMATURE GRANULOCYTES 0.5 %; IMMATURE GRANULOCYTES ABSOLUTE 0.05 10/3/uL (0.0-0.11); LYMPHOCYTES 2.7 %; LYMPHOCYTES ABSOLUTE 0.29 10/3/uL (0.67-4.30); MEAN CORPUS HGB CONC 33.8 g/dL (32.0-36.0); MEAN CORPUSCULAR HEMOGLOB 28.2 pg (26.0-34.0); MEAN PLATELET VOLUME 8.5 fL (9.2-13.0); MONOCYTES 3.8 %; PLATELET COUNT 192 10/3/uL (150-400); RBC DISTRIBUTION WIDTH 24.8 % (12.0-16.0); WHITE BLOOD CELLS 10.6 10/3/uL (4.5-10.5)
[2017-01-21 07:43] LABS: HEMATOCRIT 29.9 % (40.0-51.0); HEMOGLOBIN 10.1 g/dL (13.6-17.8); MANUAL DIFF NO %; MEAN CORPUSCULAR VOLUME 83.5 fL (80-100); RED CELL COUNT 3.58 10/6/uL (4.7-6.1)
[2017-01-21 07:56] LABS: ALBUMIN 3.2 G/DL (3.5-5.0); CALCIUM, SERUM 9.4 MG/DL (8.5-10.4); CHLORIDE, SERUM 100 MMOL/L (96-112); CO2 (CARBON DIOXIDE) 26 MMOL/L (24-34); CREATININE 0.71 MG/DL (0.70-1.30); GFR AFRICAN AMERICAN 112 ML/MIN (>=60); GFR NON AFRICAN AMERICAN 96 ML/MIN (>=60); GLUCOSE, SERUM 126 MG/DL (60-99); POTASSIUM, SERUM 3.7 MMOL/L (3.5-5.3); SGOT(AST) 18 U/L (5-40); SGPT(ALT) 20 U/L (5-65); SODIUM, SERUM 136 MMOL/L (135-148); TOTAL BILIRUBIN 0.3 MG/DL (0-1.2)
[2017-01-21 07:57] LABS: A/G RATIO 0.8 (0.7-1.9); ALKALINE PHOSPHATASE 75 U/L (45-117); BUN (BLOOD UREA NITROGEN) 14 MG/DL (6-23); GLOBULIN 3.8 G/DL (2.5-4.1)
[2017-01-21 08:09] LABS: PLATELET ESTIMATE ADQ (ADEQUATE)
[2017-01-22 05:19] LABS: BASOPHILS 0.1 %; BASOPHILS ABSOLUTE 0.01 10/3/uL (0.0-0.16); EOSINOPHILS 0.4 %; EOSINOPHILS ABSOLUTE 0.03 10/3/uL (0.0-0.53); HEMATOCRIT 31.8 % (40.0-51.0); HEMOGLOBIN 10.4 g/dL (13.6-17.8); IMMATURE GRANULOCYTES 0.9 %; IMMATURE GRANULOCYTES ABSOLUTE 0.07 10/3/uL (0.0-0.11); LYMPHOCYTES ABSOLUTE 0.85 10/3/uL (0.67-4.30); MEAN CORPUS HGB CONC 32.7 g/dL (32.0-36.0); MEAN CORPUSCULAR HEMOGLOB 27.7 pg (26.0-34.0); MEAN CORPUSCULAR VOLUME 84.6 fL (80-100); MEAN PLATELET VOLUME 8.9 fL (9.2-13.0); MONOCYTES 5.5 %; MONOCYTES ABSOLUTE 0.43 10/3/uL (0.21-1.20); NEUTROPHILS 82.1 %; NEUTROPHILS ABSOLUTE 6.37 10/3/uL (2.02-8.40); PLATELET COUNT 207 10/3/uL (150-400); RBC DISTRIBUTION WIDTH 24.5 % (12.0-16.0); RED CELL COUNT 3.76 10/6/uL (4.7-6.1); WHITE BLOOD CELLS 7.8 10/3/uL (4.5-10.5)
[2017-01-22 05:25] LABS: MANUAL DIFF NO %
[2017-01-22 05:31] LABS: CALCIUM, SERUM 9.4 MG/DL (8.5-10.4); CHLORIDE, SERUM 98 MMOL/L (96-112); CO2 (CARBON DIOXIDE) 29 MMOL/L (24-34); CREATININE 0.82 MG/DL (0.70-1.30); GFR AFRICAN AMERICAN 105 ML/MIN (>=60); GFR NON AFRICAN AMERICAN 91 ML/MIN (>=60); POTASSIUM, SERUM 4.1 MMOL/L (3.5-5.3); SODIUM, SERUM 137 MMOL/L (135-148)
[2017-01-22 05:32] LABS: BUN (BLOOD UREA NITROGEN) 18 MG/DL (6-23); GLUCOSE, SERUM 77 MG/DL (60-99)
[2017-01-22 06:10] LABS: PLATELET ESTIMATE ADQ (ADEQUATE)
[2017-01-22] MEDS ORDERED: BACTRIM DS1 TAB PO (09:52)
[2017-01-22] MEDS ORDERED: FLORASTOR250 MG PO (09:53)
[2017-01-22] MEDS ORDERED: ZITHROMAX500 MG PO (09:53)
[2017-01-22] MEDS ORDERED: COREG3 PO (09:54)
[2017-01-22] MEDS ORDERED: P10 PO (09:54)
== END 2017-01-22 13:54 | disposition home or self-care (01) | DRG 871 ==
LOC: ER 21:49 → 5NO 22:46
PROVIDERS: Emergency Medicine; Internal Medicine
DX: A41.9 Sepsis, unspecified organism (principal); J18.9 Pneumonia, unspecified organism; J96.21 Acute and chronic respiratory failure with hypoxia; E43 Unspecified severe protein-calorie malnutrition; C34.90 Malignant neoplasm of unspecified part of unspecified bronchus or lung; J44.0 Chronic obstructive pulmonary disease with (acute) lower respiratory infection; E86.0 Dehydration; J44.1 Chronic obstructive pulmonary disease with (acute) exacerbation; Z68.1 Body mass index [BMI] 19.9 or less, adult; R65.20 Severe sepsis without septic shock; I10 Essential (primary) hypertension; D64.9 Anemia, unspecified; Z92.21 Personal history of antineoplastic chemotherapy; Z87.891 Personal history of nicotine dependence
CPT/HCPCS: 36415; 71010; 71020; 71275; 80048; 80053; 81001; 83605; 83735; 83880; 84132; 84145; 84443; 84484; 85025; 85610; 85730; 86850; 86900; 86901; 86920; 87040; 87070; 87205; 87449; 93005; 94640; 96361; 96374; 99285; A9270-GY; J1940; J1956; J2920; J3370; P9016; P9047; Q9967